=== PATIENT | male | born 1975 ===

== ENCOUNTER 2023-07-21 15:09 | Inpatient (IN) | payer OTHER ==
[~2023-07-21] VITALS: Ht 182.9 cm; Wt 113.9 kg
[2023-07-21 16:14] LABS: ALCOHOL, URINE DRUG SCREEN NEGATIVE (NEGATIVE); AMPHET/METH SCREEN,URINE POSITIVE (NEGATIVE); BARBITURATE SCREEN, URINE NEGATIVE (NEGATIVE); BENZODIAZEPINES SCREEN,URINE NEGATIVE (NEGATIVE); CANNABINOID SCREEN,URINE NEGATIVE (NEGATIVE); COCAINE SCREEN,URINE NEGATIVE (NEGATIVE); METHADONE SCREEN, URINE NEGATIVE (NEGATIVE); OPIATE SCREEN,URINE NEGATIVE (NEGATIVE); PHENCYCLIDINE SCREEN,URINE NEGATIVE (NEGATIVE)
[2023-07-21 16:18] LABS: BASOPHILS % (AUTO) 0.8 % (0.0-2.0); EOSINOPHILS % (AUTO) 1.8 % (1.0-6.0); HEMATOCRIT 41.5 % (41-53); HEMOGLOBIN 13.8 g/dL (13.5-17.5); LYMPHOCYTES % (AUTO) 15.1 % (22.0-44.0); MEAN CORPUSCULAR HEMOGLOBIN 30.6 pg (26.0-34.0); MEAN CORPUSCULAR HGB CONC 33.4 G/dL (31.0-37.0); MEAN CORPUSCULAR VOLUME 92 fL (80-100); MONOCYTES # (AUTO) 0.4 K/uL (0.1-1.0); MONOCYTES % (AUTO) 6.7 % (2.0-9.0); NEUTROPHILS # (AUTO) 4.9 K/uL (1.8-7.7); NEUTROPHILS % (AUTO) 75.6 % (40.0-70.0); PLATELET COUNT (AUTO) 250 K/uL (150-450); RED BLOOD CELL COUNT(AUTO) 4.52 MIL/uL (4.50-5.90); RED CELL DISTRIBUTION WIDTH 13.4 % (11.5-14.5); WHITE BLOOD COUNT (AUTO) 6.5 K/uL (4.5-11.0)
[2023-07-21 16:26] LABS: ANION GAP 7 mmol/L (8-16); CALCIUM, TOTAL 8.8 mg/dL (8.8-10.5); CARBON DIOXIDE 28 mmol/L (22-29); CHLORIDE 101 mmol/L (98-107); CREATININE 1.05 mg/dL (0.60-1.30); GLOMERULAR FILTR. RATE CALC > 60 mL/min (>60); GLUCOSE,RANDOM 98 mg/dL (70-110); SODIUM SERUM 136 mmol/L (136-145); UREA NITROGEN, BLOOD 11 mg/dL (7-18)
[2023-07-21 16:31] LABS: ALANINE AMINOTRANSFERASE 25 U/L (12-78); ALBUMIN 3.7 g/dL (3.4-5.0); ALKALINE PHOSPHATASE 67 U/L (46-116); ASPARTATE AMINOTRANSFERASE 20 U/L (15-37); BILIRUBIN,TOTAL 0.4 mg/dL (0.1-1.0); TOTAL PROTEIN, SERUM 7.6 g/dL (6.4-8.2)
[2023-07-21 16:41] LABS: ALCOHOL, BLOOD (SERUM) < 3 mg/dL (0-10)
[2023-07-21] MEDS ORDERED: ALBUTEROL SULFATE 2.5 MG/0.5 ML NEB SOLUTION NEB PRN (17:30)
[2023-07-21] MEDS ORDERED: ChlordiazePOXIDE HCL 25 MG CAPSULE PO PRN (17:30)
[2023-07-21] MEDS ORDERED: ONDANSETRON HCL 4 MG/2 ML VIAL IVP PRN (17:30)
[2023-07-21] MEDS ORDERED: IPRATROPIUM BROMIDE 0.5 MG/2.5 ML NEB SOLUTION NEB PRN (17:30)
[2023-07-21] MEDS ORDERED: BISACODYL 10 MG RECTAL RECTAL SUPPOSITORY PR PRN (17:30)
[2023-07-21] MEDS ORDERED: ZOLPIDEM TARTRATE 5 MG TABLET PO PRN (17:30)
[2023-07-21] MEDS ORDERED: ACETAMINOPHEN 325 MG TABLET PO PRN (17:30)
[2023-07-21] MEDS ORDERED: MAGNESIUM HYDROXIDE SUSPENSION 30 ML UDCUP PO PRN (17:30)
[2023-07-21] MEDS: 1: MAGNESIUM SULFATE 2 GM, MVI, ADULT NO.1 WITH VIT K 10 ML, THIAMINE 100 MG, FOLIC ACID IV SCH ×5 (18:36)
[2023-07-21 19:50] LABS: COVID AG,FIA SOURCE NASAL SWAB
[2023-07-21 19:55] VITALS: BP 148/82; PULSE 75; RESP 20; TEMP 97.7
[2023-07-21 20:25] LABS: SARS-COV2 (COVID) ANTIGEN,FIA Negative (Negative)
[2023-07-21] MEDS: DOCUSATE SODIUM 100 MG CAPSULE PO SCH (20:30)
[2023-07-21] MEDS: HEPARIN SODIUM,PORCINE 5,000 UNITS/ML VIAL SQ SCH (23:27)
[2023-07-22 05:34] VITALS: BP 132/94; PULSE 66; RESP 20; TEMP 98
[2023-07-22] MEDS ORDERED: SODIUM CHLORIDE 0.9% 0 ML ONE (06:10)
[2023-07-22] MEDS ORDERED: ChlordiazePOXIDE HCL 25 MG CAPSULE PO PRN (07:00)
[2023-07-22] MEDS: ChlordiazePOXIDE HCL 25 MG CAPSULE PO SCH ×4 (07:58→20:23)
[2023-07-22] MEDS: HEPARIN SODIUM,PORCINE 5,000 UNITS/ML VIAL SQ SCH ×3 (07:58→23:59)
[2023-07-22] MEDS: 1: MAGNESIUM SULFATE 2 GM, MVI, ADULT NO.1 WITH VIT K 10 ML, THIAMINE 100 MG, FOLIC ACID IV SCH ×10 (07:58→20:22)
[2023-07-22] MEDS: PANTOPRAZOLE SODIUM 40 MG/VIAL IVP SCH (07:58)
[2023-07-22] MEDS: DOCUSATE SODIUM 100 MG CAPSULE PO SCH ×3 (08:08→20:27)
[2023-07-22 09:37] VITALS: BP 120/80; PULSE 64; RESP 18; TEMP 97.7
[2023-07-22] MEDS ORDERED: CYANOCOBALAMIN 1,000 MCG/ML VIAL IM ONE (11:00)
[2023-07-22] MEDS: MULTIVITAMINS WITH MINERALS, THERAPEUTIC TABLET PO SCH (11:42)
[2023-07-22] MEDS: FOLIC ACID 1 MG TABLET PO SCH (11:42)
[2023-07-22] MEDS: THIAMINE 100 MG TABLET PO SCH ×2 (11:42→20:22)
[2023-07-22 19:30] VITALS: BP 131/85; PULSE 67; RESP 16; TEMP 98
[2023-07-23 04:30] VITALS: BP 125/75; PULSE 72; RESP 20; TEMP 97.7
[2023-07-23 08:06] VITALS: BP 148/74; PULSE 68; RESP 18; TEMP 98
[2023-07-23] MEDS: FOLIC ACID 1 MG TABLET PO SCH (08:11)
[2023-07-23] MEDS: DOCUSATE SODIUM 100 MG CAPSULE PO SCH ×4 (08:11→20:49)
[2023-07-23] MEDS: PANTOPRAZOLE SODIUM 40 MG/VIAL IVP SCH (08:11)
[2023-07-23] MEDS: ChlordiazePOXIDE HCL 25 MG CAPSULE PO SCH (08:11)
[2023-07-23] MEDS: THIAMINE 100 MG TABLET PO SCH ×2 (08:11→20:43)
[2023-07-23] MEDS: MULTIVITAMINS WITH MINERALS, THERAPEUTIC TABLET PO SCH (08:11)
[2023-07-23] MEDS: HEPARIN SODIUM,PORCINE 5,000 UNITS/ML VIAL SQ SCH ×3 (08:11→23:06)
[2023-07-23 15:36] VITALS: BP 136/82; PULSE 70; RESP 18; TEMP 98.4
[2023-07-23] MEDS: ChlordiazePOXIDE HCL 10 MG CAPSULE PO PRN (15:41)
[2023-07-23 19:50] VITALS: BP 134/86; PULSE 76; RESP 20; TEMP 98.2
[2023-07-24] MEDS: ChlordiazePOXIDE HCL 10 MG CAPSULE PO PRN (00:27)
[2023-07-24 05:09] VITALS: BP 130/84; PULSE 72; RESP 20; TEMP 99.3
[2023-07-24] MEDS ORDERED: ChlordiazePOXIDE HCL 10 MG CAPSULE PO PRN (07:00)
[2023-07-24] MEDS: HEPARIN SODIUM,PORCINE 5,000 UNITS/ML VIAL SQ SCH ×3 (08:00→23:48)
[2023-07-24] MEDS: DOCUSATE SODIUM 100 MG CAPSULE PO SCH ×2 (09:00→21:00)
[2023-07-24] MEDS ORDERED: ChlordiazePOXIDE HCL 10 MG CAPSULE PO SCH (09:00)
[2023-07-24 09:26] VITALS: BP 138/81; PULSE 71; RESP 20; TEMP 98
[2023-07-24] MEDS: PANTOPRAZOLE SODIUM 40 MG/VIAL IVP SCH (09:27)
[2023-07-24] MEDS: MULTIVITAMINS WITH MINERALS, THERAPEUTIC TABLET PO SCH (09:27)
[2023-07-24] MEDS: THIAMINE 100 MG TABLET PO SCH ×2 (09:27→20:57)
[2023-07-24] MEDS: FOLIC ACID 1 MG TABLET PO SCH (09:28)
[2023-07-24] MEDS ORDERED: MULT-1203 PO (10:05)
[2023-07-24] MEDS ORDERED: MAGN-169 PO (10:06)
[2023-07-24] MEDS ORDERED: ACET-2247 PO (10:06)
[2023-07-24 17:00] VITALS: BP 134/89; PULSE 80; RESP 20; TEMP 98.1
[2023-07-24 19:50] VITALS: BP 147/84; PULSE 82; RESP 20; TEMP 98.5
[2023-07-25 04:52] VITALS: BP 137/88; PULSE 75; RESP 20; TEMP 97.9
[2023-07-25] MEDS ORDERED: ChlordiazePOXIDE HCL 10 MG CAPSULE PO PRN (07:00)
[2023-07-25 08:06] VITALS: BP 144/87; PULSE 74; RESP 20; TEMP 98.2
== END 2023-07-25 08:56 | DRG 897 ==
LOC: EMS 15:22 → 6S 18:56
PROVIDERS: ADMIT Hospitalist; ATTEND Hospitalist
DX: F10.139 Alcohol abuse with withdrawal, unspecified (principal); F15.10 Other stimulant abuse, uncomplicated; F17.200 Nicotine dependence, unspecified, uncomplicated; F41.9 Anxiety disorder, unspecified; F10.129 Alcohol abuse with intoxication, unspecified; Z20.822 Contact with and (suspected) exposure to COVID-19
CPT/HCPCS: 80053; 80307; 85025; 93005; 99285; C9113; G0480; J1644; J3411; J3420; J3475; J3490; J7030